=== PATIENT | female | born 2000 | race Caucasian/White ===

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

== ENCOUNTER 2021-01-08 00:13 | Emergency (ER) | payer OTHER ==
[~2021-01-08] VITALS: Ht 172.7 cm; Wt 117.9 kg
--- OUTSIDE RECORDS SUMMARY | 2021-01-08 00:16 | XMS ---
PreManage Notification: [facility] Security Process Checker Events No recent Security Events currently on file CRITERIA MET - [facility] - 3 Facilities in 90 Days - [facility] - 2 Visits in 30 Days CARE PROVIDERS There are no care providers on record at this time. El has no Care Guidelines for this patient. E.D[facility]avia VISIT COUNT (12 MO.) 1 [facility] 1 [facility] 1 [facility] Engel TOTAL 3 NOTE: Visits indicate total known visits. ED/C VISIT TRACKING (12 MO.) 01/08/2021 00:14 [facility] [place] TYPE: Emergency COMPLAINT: - LOWER BACK PAIN 12/31/2020 23:14 [facility] TYPE: Emergency DIAGNOSES: - Radiculopathy, lumbar region - back pain spinal epidural - Back Pain [facility] TYPE: Emergency DIAGNOSES: - Back Pain - Headache (Peds - New Onset Or New Symptoms) INPATIENT VISIT TRACKING (12 MO.) No inpatient visits to display in this time frame [email or web address]
[2021-01-08] MEDS ORDERED: TRAMADOL HCL50 MG PO (00:27)
[2021-01-08] MEDS ORDERED: TIZANIDINE HCL4 M1 PO (00:28)
[2021-01-08] MEDS ORDERED: LYRICA75 MG PO (00:28)
[2021-01-08] MEDS ORDERED: METHOCARBAMOL500 MG PO (00:28)
[2021-01-08] MEDS ORDERED: ACETAMINOPHEN-1 EAC1 PO (00:30)
== END 2021-01-08 01:43 | disposition home or self-care (01) ==
LOC: ED 00:13
DX: M54.42 Lumbago with sciatica, left side (principal); G89.29 Other chronic pain; Z88.0 Allergy status to penicillin; Z79.899 Other long term (current) drug therapy; Z79.891 Long term (current) use of opiate analgesic
CPT/HCPCS: 99283